=== PATIENT | male | born 1970 | race Two or more races ===

== ENCOUNTER 2024-04-19 10:32 | Emergency (ER) | payer OTHER ==
[~2024-04-19] VITALS: Ht 170.2 cm; Wt 102.1 kg
[2024-04-19] MEDS ORDERED: KETOROLAC TROMETHAMINE 60 MG VIAL IM STA (11:29)
[2024-04-19] MEDS ORDERED: ORPHENADRINE CITRATE 30 MG/ML AMPUL IM STA (11:30)
[2024-04-19] MEDS ORDERED: DEXAMETHASONE SODIUM PHOSPHATE 4 MG/ML VIAL IM STA (11:30)
[2024-04-19] MEDS ORDERED: DEXAMETHASONE SODIUM PHOSPHATE 4 MG/ML VIAL ONE (11:59)
[2024-04-19] MEDS ORDERED: KETOROLAC TROMETHAMINE 60 MG VIAL IM ONE (11:59)
[2024-04-19] MEDS ORDERED: ORPHENADRINE CITRATE 100 MG TABLET PO STA (12:03)
[2024-04-19] MEDS ORDERED: MEPERIDINE HCL/PF 25 MG/ML VIAL IM STA (12:56)
[2024-04-19] MEDS ORDERED: CYCLOBENZAPRINE5 MG PO (14:12)
[2024-04-19] MEDS ORDERED: KETO10TA2 PO (14:12)
[2024-04-19] MEDS ORDERED: MEDROLPACK PO (14:12)
== END 2024-04-19 14:33 | disposition home or self-care (01) ==
LOC: ER 10:34
DX: M54.59 Other low back pain (principal)